=== PATIENT | female | born 1980 | race Hispanic/Latino ===

== ENCOUNTER 2020-10-06 09:45 | Emergency (ER) | payer MEDICAID, OTHER ==
[2020-10-06 10:01] LABS: BASOPHILS % (AUTO) 0.4 % (0.0-5.0); EOSINOPHILS % (AUTO) 0.8 % (0.0-8.0); HEMATOCRIT 39.5 % (36-48); LYMPHOCYTES % (AUTO) 11.6 % (21.0-51.0); MEAN CORPUSCULAR HEMOGLOBIN 26.5 pg (27.0-33.0); MEAN CORPUSCULAR HGB CONC 31.9 g/dL (32.0-36.0); MONOCYTES % (AUTO) 5.1 % (3.0-13.0); NEUTROPHILS % (AUTO) 81.6 % (40.0-77.0); PLATELET COUNT (AUTO) 335 K/uL (130-400); RED BLOOD CELL COUNT(AUTO) 4.76 MIL/uL (4.00-5.50); WHITE BLOOD COUNT (AUTO) 13.8 K/uL (4.8-10.8)
[2020-10-06 10:09] LABS: CARBON DIOXIDE 19 mmol/L (21-32); CHLORIDE 99 mmol/L (101-111); CREATININE 1.2 mg/dL (0.5-1.5); GLOMERULAR FILTR. RATE CALC 53 mL/min (>60); GLUCOSE,RANDOM 166 mg/dL (70-105); POTASSIUM 3.6 mmol/L (3.5-5.1); SODIUM SERUM 136 mmol/L (136-145); UREA NITROGEN, BLOOD 7 mg/dL (7-18)
[2020-10-06] MEDS ORDERED: LORAZEPAM 2 MG/ML 1 ML VIAL ONE (10:13)
[2020-10-06 10:14] LABS: ACETAMINOPHEN 3 mcg/mL (10-30); ALANINE AMINOTRANSFERASE 17 U/L (12-78); ALBUMIN 3.3 g/dL (3.5-5.0); ALCOHOL, BLOOD < 3 mg/dL (0-10); ASPARTATE AMINOTRANSFERASE 22 U/L (10-37); BILIRUBIN,TOTAL 0.6 mg/dL (0.2-1.0); SALICYLATE 3.4 mg/dL (2.8-20.0); TOTAL PROTEIN, SERUM 7.6 g/dL (6.0-8.3)
[2020-10-06 11:00] LABS: APPEARANCE,URINE Cloudy (CLEAR); BILIRUBIN,URINE Negative (NEGATIVE); COLOR,URINE Yellow (YELLOW); GLUCOSE, URINE (UA) Negative (NEGATIVE); KETONES,URINE Trace mg/dL (NEGATIVE); LEUKOCYTE ESTERASE ,URINE Large (NEGATIVE); NITRATE,URINE Negative (NEGATIVE); OCCULT BLOOD,URINE Nonhemolyzed Trace (NEGATIVE); PH,URINE 6.5 (5.0-8.0); PROTEIN,URINE POS 1+ mg/dL (NEGATIVE); UROBILINOGEN,URINE 0.2 mg/dL (0.2-1.0)
[2020-10-06 11:03] LABS: HCG,QUAL RESULT NEGATIVE (NEGATIVE)
[2020-10-06 11:08] LABS: AMPHET/METH SCREEN,URINE NEGATIVE (NEGATIVE); BARBITURATE SCREEN, URINE NEGATIVE (NEGATIVE); BENZODIAZEPINES SCREEN,URINE NEGATIVE (NEGATIVE); CANNABINOID SCREEN,URINE POSITIVE (NEGATIVE); COCAINE SCREEN,URINE POSITIVE (NEGATIVE); OPIATE SCREEN,URINE NEGATIVE (NEGATIVE); PHENCYCLIDINE SCREEN,URINE NEGATIVE (NEGATIVE)
[2020-10-06 11:09] LABS: BACTERIA,URINE Moderate /HPF (None Seen); TRICHOMONAS,URINE Many /LPF (None Seen); WBC,URINE 26-50 /HPF (0-1)
[2020-10-06 11:10] LABS: MUCUS,URINE Few LPF (None Seen); SQUAMOUS EPITHELIAL CELL,UR 30-50 /HPF (0-2); TRANSITIONAL EPI CELLS,URINE Moderate /HPF (None Seen)
[2020-10-06] MEDS ORDERED: CEFTRIAXONE SODIUM 1 GM ONE (11:38)
== END 2020-10-06 13:02 | disposition home or self-care (01) ==
LOC: EDH 09:45
DX: S00.03XA Contusion of scalp, initial encounter (principal); G40.909 Epilepsy, unspecified, not intractable, without status epilepticus; N39.0 Urinary tract infection, site not specified; F14.10 Cocaine abuse, uncomplicated; F12.10 Cannabis abuse, uncomplicated; Z72.0 Tobacco use; W18.39XA Other fall on same level, initial encounter; Y93.89 Activity, other specified; Y92.89 Other specified places as the place of occurrence of the external cause; Y99.8 Other external cause status
CPT/HCPCS: 36415; 70450; 80053; 80305; 81001; 81025; 85025; 87088; 93005; 96374; 96375; 99285; G0481; J0696; J2060

== ENCOUNTER 2021-07-09 04:19 | Inpatient (IN) | payer SELFPAY ==
[~2021-07-09] VITALS: Ht 157.5 cm; Wt 81.6 kg
[2021-07-09] VITALS (11 sets, daily range): BP systolic 106–151; BP diastolic 48–81
[2021-07-09 04:42] LABS: BASOPHILS % (AUTO) 0.6 % (0.0-5.0); EOSINOPHILS % (AUTO) 2.3 % (0.0-8.0); HEMATOCRIT 35.5 % (36-48); LYMPHOCYTES % (AUTO) 32.3 % (21.0-51.0); MEAN CORPUSCULAR HEMOGLOBIN 25.9 pg (27.0-33.0); MEAN CORPUSCULAR VOLUME 83.5 fL (79-99); MONOCYTES % (AUTO) 7.6 % (3.0-13.0); NEUTROPHILS % (AUTO) 56.9 % (40.0-77.0); PLATELET COUNT (AUTO) 274 K/uL (130-400); RED BLOOD CELL COUNT(AUTO) 4.25 MIL/uL (4.00-5.50); RED CELL DISTRIBUTION WIDTH 16.3 % (11.0-15.5); WHITE BLOOD COUNT (AUTO) 11.5 K/uL (4.8-10.8)
[2021-07-09] MEDS ORDERED: 0.9%NACL 1000ML 1,000 ML IV SCH (05:00)
[2021-07-09] MEDS ORDERED: LACTATED RINGERS 1000ML 1,000 ML IV SCH (05:00)
[2021-07-09 05:02] LABS: INR 1.01 (0.85-1.15)
[2021-07-09 05:03] LABS: PARTIAL THROMBOPLASTIN TIME < 20.0 SEC (26.3-35.5)
[2021-07-09 05:04] LABS: ALBUMIN 3.6 g/dL (3.5-5.0); BILIRUBIN,TOTAL 0.6 mg/dL (0.2-1.0); CREATININE 1.4 mg/dL (0.5-1.5); POTASSIUM 3.3 mmol/L (3.5-5.1); TOTAL PROTEIN, SERUM 7.8 g/dL (6.0-8.3)
[2021-07-09] MEDS ORDERED: CEFAZOLIN SODIUM 1 GM VIAL IVP ONE (05:30)
[2021-07-09] MEDS ORDERED: KETOROLAC 30MG VIAL (30MG/ML) IV ONE (05:30)
[2021-07-09] MEDS ORDERED: TETANUS/DIPHTHERIA TOXOID [ADULT] 0.5 ML VIAL IM ONE (05:30)
[2021-07-09] MEDS ORDERED: DIPHENHYDRAMINE HCL 25 MG CAPSULE PO PRN (06:00)
[2021-07-09] MEDS ORDERED: ACETAMINOPHEN 325 MG TAB PO PRN ×2 (06:00)
[2021-07-09] MEDS ORDERED: ONDANSETRON 4MG INJ IV PRN (06:00)
[2021-07-09] MEDS: LACTATED RINGERS 1000ML 1,000 ML IV SCH ×2 (07:38→15:35)
[2021-07-09] MEDS: 0.9%NACL 1000ML 1,000 ML IV SCH ×2 (08:00→15:35)
[2021-07-09] MEDS: FAMOTIDINE 20MG VIAL IV SCH (09:10)
[2021-07-09] MEDS: AMP/SULBAC 1.5GM+NS 100ML 100 ML IV SCH ×3 (10:51→20:57)
[2021-07-09] MEDS: MORPHINE 2 MG SYG IV PRN ×2 (19:58→20:52)
[2021-07-10] VITALS (28 sets, daily range): BP systolic 123–176; BP diastolic 65–93
[2021-07-10] MEDS: LACTATED RINGERS 1000ML 1,000 ML IV SCH ×2 (00:16→13:43)
[2021-07-10] MEDS: AMP/SULBAC 1.5GM+NS 100ML 100 ML IV SCH ×3 (02:31→20:57)
[2021-07-10] MEDS: 0.9%NACL 1000ML 1,000 ML IV SCH ×2 (04:00→17:51)
[2021-07-10] MEDS: KETOROLAC 15MG/ML VIAL (15MG/ML) IV PRN ×3 (05:55→20:46)
[2021-07-10 07:24] LABS: BASOPHILS % (AUTO) 0.7 % (0.0-5.0); EOSINOPHILS % (AUTO) 3.2 % (0.0-8.0); HEMATOCRIT 24.8 % (36-48); LYMPHOCYTES % (AUTO) 21.3 % (21.0-51.0); MEAN CORPUSCULAR HEMOGLOBIN 25.6 pg (27.0-33.0); MEAN CORPUSCULAR HGB CONC 30.6 g/dL (32.0-36.0); MEAN CORPUSCULAR VOLUME 83.5 fL (79-99); MONOCYTES % (AUTO) 6.6 % (3.0-13.0); NEUTROPHILS % (AUTO) 67.9 % (40.0-77.0); PLATELET COUNT (AUTO) 168 K/uL (130-400); RED BLOOD CELL COUNT(AUTO) 2.97 MIL/uL (4.00-5.50); RED CELL DISTRIBUTION WIDTH 16.2 % (11.0-15.5); WHITE BLOOD COUNT (AUTO) 7.1 K/uL (4.8-10.8)
[2021-07-10 07:40] LABS: ALBUMIN 2.7 g/dL (3.5-5.0); BILIRUBIN,TOTAL 0.7 mg/dL (0.2-1.0); CREATININE 0.7 mg/dL (0.5-1.5); POTASSIUM 3.6 mmol/L (3.5-5.1); TOTAL PROTEIN, SERUM 5.9 g/dL (6.0-8.3)
[2021-07-10] MEDS ORDERED: DEXAMETHASONE SOD PHOSPHATE 10MG/ML 1ML VIAL ONE (08:52)
[2021-07-10] MEDS ORDERED: LIDOCAINE PF 100MG/5ML (2%) SYRINGE 5ML ONE (08:52)
[2021-07-10] MEDS ORDERED: SUCCINYLCHOLINE 200MG/10ML SYR ONE (08:52)
[2021-07-10] MEDS ORDERED: MEPERIDINE-PF 25 MG/ML SYG ONE (08:53)
[2021-07-10] MEDS ORDERED: PROPOFOL 10 MG/ML 20ML VIAL IV ONE (08:53)
[2021-07-10] MEDS ORDERED: FENTANYL CITRATE PF 50 MCG/1 ML 2ML VIAL ONE ×2 (08:53→09:23)
[2021-07-10] MEDS ORDERED: MIDAZOLAM HCL 1 MG/ML 2ML VIAL ONE (08:53)
[2021-07-10] MEDS ORDERED: ONDANSETRON 4MG INJ ONE (08:53)
[2021-07-10] MEDS ORDERED: CEFAZOLIN SODIUM 1 GM VIAL ONE (09:08)
[2021-07-10] MEDS ORDERED: BUPIVACAINE/PF 0.25% 30ML VIAL IJ ONE (09:16)
[2021-07-10] MEDS ORDERED: EPHEDRINE SULFATE 50 MG/ML AMPULE ONE (09:32)
[2021-07-10] MEDS ORDERED: FENTANYL CITRATE PF 50 MCG/1 ML 5ML AMP IV ONE (10:01)
[2021-07-10 10:30] LABS: RETICULOCYTE % (AUTO) 1.49 % (0.42-2.23)
[2021-07-10] MEDS ORDERED: KCL 20 MEQ ERTAB PO ONE ×3 (10:30→17:40)
[2021-07-10 11:08] LABS: % IRON SATURATION 6.1 % (22-44)
[2021-07-10] MEDS ORDERED: EPOETIN ALFA-EPBX (NON-ESRD) 10,000 UNIT/ML VIAL SQ SCH (14:00)
[2021-07-10] MEDS ORDERED: COMPOUND IV MISC 1 EACH IVSOLN MISC PRN (14:00)
[2021-07-10] MEDS: IRON SUCROSE COMPLEX 500 MG in 0.9%NACL 50ML 50 ML IV SCH (16:02)
[2021-07-10 18:03] LABS: APPEARANCE,URINE Cloudy (CLEAR); BILIRUBIN,URINE Negative (NEGATIVE); COLOR,URINE Red (YELLOW); GLUCOSE, URINE (UA) 250 mg/dL (NEGATIVE); KETONES,URINE Trace mg/dL (NEGATIVE); LEUKOCYTE ESTERASE ,URINE Trace (NEGATIVE); NITRATE,URINE Negative (NEGATIVE); OCCULT BLOOD,URINE Large (NEGATIVE); PROTEIN,URINE Trace mg/dL (NEGATIVE)
[2021-07-10 18:10] LABS: AMPHET/METH SCREEN,URINE NEGATIVE (NEGATIVE); BARBITURATE SCREEN, URINE NEGATIVE (NEGATIVE); BENZODIAZEPINES SCREEN,URINE POSITIVE (NEGATIVE); CANNABINOID SCREEN,URINE POSITIVE (NEGATIVE); COCAINE SCREEN,URINE POSITIVE (NEGATIVE); OPIATE SCREEN,URINE NEGATIVE (NEGATIVE); PHENCYCLIDINE SCREEN,URINE NEGATIVE (NEGATIVE)
[2021-07-10 18:49] LABS: BACTERIA,URINE Few /HPF (None Seen); RBC,URINE >100 /HPF (0-1)
[2021-07-10 22:52] LABS: HEMATOCRIT 28.9 % (36-48)
[2021-07-11] MEDS: AMP/SULBAC 1.5GM+NS 100ML 100 ML IV SCH ×3 (03:05→13:23)
[2021-07-11 04:02] VITALS: BP 141/68
[2021-07-11] MEDS: LACTATED RINGERS 1000ML 1,000 ML IV SCH (04:57)
[2021-07-11] MEDS: KETOROLAC 15MG/ML VIAL (15MG/ML) IV PRN ×2 (06:30→13:25)
[2021-07-11 07:29] VITALS: BP 159/77
[2021-07-11] MEDS: FAMOTIDINE 20MG VIAL IV SCH (08:46)
[2021-07-11] MEDS: IRON SUCROSE COMPLEX 500 MG in 0.9%NACL 50ML 50 ML IV SCH (10:54)
[2021-07-11 11:19] VITALS: BP 148/80
[2021-07-11] MEDS ORDERED: ACET1TAB25 PO (14:15)
[2021-07-11] MEDS ORDERED: CEPH500B PO (14:15)
[2021-07-11] MEDS ORDERED: FERR-72 PO (14:17)
[2021-07-11 15:49] VITALS: BP 159/60
== END 2021-07-11 17:35 | disposition home or self-care (01) | DRG 572 ==
LOC: EDH 04:19 → EEVIPCON 04:19 → OBSVTOIN 04:20 → EDHIP 04:20 → WSH 07-10 11:45
PROVIDERS: ADMIT Internal Medicine; ATTEND Internal Medicine
PROC: 3E0234Z Introduction of Serum, Toxoid and Vaccine into Muscle, Percutaneous Approach (ICD-10-PCS; 2021-07-09)
PROC: 01Q50ZZ Repair Median Nerve, Open Approach (ICD-10-PCS; 2021-07-10)
PROC: 30233N1 Transfusion of Nonautologous Red Blood Cells into Peripheral Vein, Percutaneous Approach (ICD-10-PCS; 2021-07-10)
PROC: 0JBH0ZZ Excision of Left Lower Arm Subcutaneous Tissue and Fascia, Open Approach (ICD-10-PCS; principal; 2021-07-10 08:57)
PROC: 0JBG0ZZ Excision of Right Lower Arm Subcutaneous Tissue and Fascia, Open Approach (ICD-10-PCS; 2021-07-10 08:57)
PROC: 01N50ZZ Release Median Nerve, Open Approach (ICD-10-PCS; 2021-07-10 08:57)
DX: S61.511A Laceration without foreign body of right wrist, initial encounter (principal); S61.512A Laceration without foreign body of left wrist, initial encounter; S51.812A Laceration without foreign body of left forearm, initial encounter; F14.10 Cocaine abuse, uncomplicated; F17.210 Nicotine dependence, cigarettes, uncomplicated; S51.811A Laceration without foreign body of right forearm, initial encounter; Z20.822 Contact with and (suspected) exposure to COVID-19; Z23 Encounter for immunization; Z56.0 Unemployment, unspecified
CPT/HCPCS: 36415; 36430; 71045; 73110; 80053; 80305; 81001; 82607; 82728; 82746; 83540; 83550; 85014; 85018; 85025; 85045; 85610; 85730; 86850; 86900; 86901; 86923; 87635; 93005; C9803; G0378; J0295; J0330; J0690; J1100; J1756; J1885; J2001; J2175; J2250; J2405; J2704; J3010; J3490; J7030; J7120; P9016